=== PATIENT | female | born 1970 | race Caucasian/White ===

== ENCOUNTER 2017-12-14 16:59 | Emergency (ER) | payer OTHER, MEDICAID ==
[2013-11-19 10:01] VITALS: Wt 74.8 kg
[~2017-12-14 16:59] MED LIST: ALB6.7R INH; AMO500 PO; ARIP30TA10 PO; CEF300 PO; CIP500 PO; CLA500 PO; CLO1 PO; CLOZ25 PO; CYC10 PO; DIA5 PO; DIV500 PO; DIV500ER PO; DIVA500T97 PO; DIVSR125 PO; DOXY150T6 PO; DUL30 PO; DULO20CA16; DULO60CA56 PO; ESOM40CA42 PO; GABA-549 PO; HAL1 PO; HAL5 PO; HYD2 PO; HYDR473S4 PO; IBU200 PO; IBUP600T22 PO; IRON45TA5 PO; KET10 PO; LEV100 PO; LEVO100T95 PO; LEVO25TA57 PO; LOR5 PO; LOR5/325 PO; LORA10TA2 PO; MET10 PO; MULT-923 PO; MVM PO; Magnesium Oxide PO; NAPR500T75 PO; NIC10R INH; OMEP40CA45 PO; OND4 PO; ONDA4TAB PO; OXYC-528 PO; PAN40 PO; PER PO; PRE20 PO; PREG25; PREG25 PO; PREG75CA60 PO; PRO25 PO; QUE100 PO; QUET200T29 PO; SERT-1 PO; SERT-173 PO; SERT-177 PO; SIMV-42 PO; SIMVASTATIN; SUC1 PO; TEM15 PO; TOP100 PO; TOPI-119 PO; TOPI15CA18; TRAM-420 PO; TRAM-627 PO; TRAM100T22 PO; TRAM100T30 PO; TRAZ-133 PO; TRAZ300T16 PO; TRAZ50; Thiamine Hcl PO; VAR1 PO; ZIPR20CA11 PO; ZIPR40CA13 PO; ZIPR80CA10 PO; ZOLP-350 PO; [UNRECOGNIZED DRUG - CODE] MC; [UNRECOGNIZED DRUG - OTHER] PO; [UNRECOGNIZED DRUG - REMARK]
[2017-12-14] MEDS ORDERED: LEVO-3 PO (17:14)
[2017-12-14] MEDS ORDERED: TRAZ300T17 PO (17:14)
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
[2017-12-14] MEDS ORDERED: ONDANSETRON 4 MG/2 ML VIAL IVP ONE ×2 (17:40→20:45)
[2017-12-14] MEDS ORDERED: diphenhydrAMINE 50 MG/ML VIAL IVP ONE (17:40)
[2017-12-14] MEDS ORDERED: NS(*) 0.9% 1000 ML BAG 1,000 ML IV ONE ×2 (17:45→19:00)
[2017-12-14] MEDS ORDERED: ONDANSETRON 4 MG ODT TABDP SL ONE ×2 (18:15→21:10)
[2017-12-14 19:17] LABS: PLATELET COUNT, AUTOMATED 276 K/uL (150-450)
[2017-12-14] MEDS ORDERED: POTASSIUM CHL 20 MEQ TABCR PO ONE (19:25)
[2017-12-14] MEDS: KCL (*) 20 MEQ/100 ML PREMIX 100 ML IV SCH ×2 (19:46→21:25)
--- NOTE | 2017-12-14 19:50 | EKG ---
[place] [facility] [place] NAME: SHAHID TEMPLETON : [id number] MR: [id number] V: [id number] EXAM DATE: ORDERING PHYSICIAN: CLAUDIA DELGADO TECHNOLOGIST: TONG Townsend Reason : Blood Pressure : / mmHG Vent. Rate : 064 BPM Atrial Rate : 064 BPM P-R Int : 106 ms QRS Dur : 086 ms QT Int : 456 ms P-R-T Axes : 057 067 034 degrees QTc Int : 470 ms Sinus rhythm with short MO Otherwise normal ECG When compared with ECG of 19-NOV-2013 18:38, No significant change was found Confirmed by JULY BUTT ([id number]) on 12/15/2017 6:46:51 AM Referred By: Confirmed By:JULY BUTT
[2017-12-14] MEDS ORDERED: MAGNESIUM OXIDE 400 MG TAB PO ONE (20:05)
[2017-12-14 21:13] VITALS: BP 123/73
[2017-12-14] MEDS ORDERED: ONDANSETRON 4 MG ODT TH SL ONE (21:20)
== END 2017-12-14 21:25 | disposition home or self-care (01) ==
LOC: ER 17:27
DX: K31.84 Gastroparesis (principal); R10.84 Generalized abdominal pain; I25.2 Old myocardial infarction; J45.909 Unspecified asthma, uncomplicated; J43.9 Emphysema, unspecified; K21.9 Gastro-esophageal reflux disease without esophagitis; F17.200 Nicotine dependence, unspecified, uncomplicated; Z79.899 Other long term (current) drug therapy; F31.9 Bipolar disorder, unspecified
CPT/HCPCS: 36415; 83735; 85025; 93005; 96361; 96374; 96375; 99284; J1200; J2405; J3480; J7030; S0119; 82040; 82247; 82310; 82374; 82435; 82565; 82947; 84075; 84132; 84155; 84295; 84450; 84460; 84520